=== PATIENT | male | born 1975 | race Hispanic/Latino ===

== ENCOUNTER 2018-09-18 07:45 | Observation (INO) | payer BC ==
[2018-09-18] MEDS ORDERED: Sodium Chloride 0.9% 1,000 ML IV STA ×2 (08:01→10:28)
--- NOTE | 2018-09-18 08:16 | ED PDOC ---
Arrival/HPI - General Chief Complaint: Male Genitourinary Time Seen by Provider: 09/18/18 07:52 Historian: Patient - History of Present Illness Narrative History of Present Illness (Text): 09/18/18 07:53 43 year old male, with no significant past medical history, who presents to the Emergency department complaining of aching right lower back pain and abdominal pain that started shortly after being unable to urinate this morning. Patient states he woke up this morning to use the bathroom, had normal bowel movements, and felt he needed to urinate but was unable to. Patient notes he was feeling hot and nauseous earlier and states he thought he was going to vomit but did not. Patient denies any known drug allergies, recent traumas, chest pain, shortness of breath, or any other complaints. Patient notes family history of ki dney stones (paternal). PMD: Dr. Keane Time/Duration: 1-3 hours (patient notes onset as 05:00 this morning) Symptom Onset: Sudden Symptom Course: Unchanged Activities at Onset: Other (went to use bathroom ) Past Medical History - Provider Review Nursing Documentation Reviewed: Yes - Travel History Have you recently traveled outside [place] w/in the past 3 mons?: No - Infectious Disease Hx of Infectious Diseases: None - Tetanus Immunization Tetanus Immunization: Up to Date - Past Medical History Past Medical History: No Previous - Cardiac Hx Pacemaker: No - Pulmonary Hx Respiratory Disorders: No - Neurological Hx Paralysis: No - HEENT Hx HEENT Disorder: No - Renal Hx Renal Disorder: No - Hematological/Oncological Hx Blood Transfusions: No Hx Blood Transfusion Reaction: No - Integumentary Hx Dermatological Disorder: No - Musculoskeletal/Rheumatological Hx Musculoskeletal Disorders: No - Gastrointestinal Hx Gastrointestinal Disorders: No - Genitourinary/Gynecological Hx Genitourinary Disorders: No - Psychiatric Hx Emotional Abuse: No Hx Physical Abuse: No Hx Substance Use: No - Past Surgical History Past Surgical History: No Previous - Anesthesia Hx Anesthesia Reactions: No Hx Malignant Hyperthermia: No - Suicidal Assessment Feels Threatened In Home Enviroment: No Family/Social History - Physician Review Nursing Documentation Reviewed: Yes Family/Social History: Other (Paternal: kidney stones) Smoking Status: Never Smoked Hx Alcohol Use: Yes (OCCASIONAL) Hx Substance Use: No Hx Substance Use Treatment: No Allergies/Home Meds Allergies/Adverse Reactions: Allergies No Known Allergies Allergy (Verified 09/18/18 11:47) Home Medications: Home Meds Medication Instructions Recorded Confirmed RX: No Known Home Med 09/18/18 09/18/18 Review of Systems - Physician Review All systems were reviewed & negative as marked: Yes - Review of Systems Constitutional: Normal Eyes: Normal ENT: Normal Respiratory: Normal. absent: SOB Cardiovascular: Normal. absent: Chest Pain Gastrointestinal: Abdominal Pain (patient notes abdominal pain ), Nausea (patient notes he had nausea earlier, felt like he needed to vomit). absent: Normal, Stool Changes (patient notes normal bowel movement this morning) Genitourinary Male: Urinary Output Changes (patient notes difficulty urinating). absent: Normal Musculoskeletal: Back Pain (right lower back pain ). absent: Normal Physical Exam Vital Signs Reviewed: Yes Vital Signs Temp Pulse Resp Pulse Ox 09/18/18 07:58 98.6 F 76 18 100 Temperature: Afebrile Pulse: Regular Respiratory Rate: Normal Appearance: Positive for: Well-Appearing, Non-Toxic Pain Distress: Mild Mental Status: Positive for: Alert and Oriented X 3 - Systems Exam Head: Present: Atraumatic, Normocephalic Pupils: Present: PERRL Extroacular Muscles: Present: EOMI Conjunctiva: Present: Normal Mouth: Present: Moist Mucous Membranes Neck: Present: Normal Range of Motion Respiratory/Chest: Present: Clear to Auscultation, Good Air Exchange. No: Respiratory Distress, Accessory Muscle Use Cardiovascular: Present: Regular Rate and Rhythm, Normal S1, S2. No: Murmurs Abdomen: Present: Tenderness (RLQ tenderness ), McBurney's Point Tender. No: Distention, Peritoneal Signs Back: Present: CVA Tenderness (right sided CVA tenderness). No: Normal Inspection Upper Extremity: Present: Normal Inspection. No: Cyanosis, Edema Lower Extremity: Present: Normal Inspection. No: Edema Neurological: Present: GCS=15, CN II-XII Intact, Speech Normal Skin: Present: Warm, Dry, Normal Color. No: Rashes Psychiatric: Present: Alert, Oriented x 3, Normal Insight, Normal Concentration Medical Decision Making ED Course and Treatment: Impression: 43 year old male presents to the Emergency department for aching right sided lower back pain and abdominal pain that started shortly after being unable to urinate this morning. Differential Diagnosis included but are not limited to: Pyelonephritis Kidney stones Prostatitis Plan: -- CT of abdomen/Pelvis IV Contrast only -- Labs -- CBC -- ESR -- IV fluids -- Flomax -- Morphine -- Toradol -- Valium -- Zofran Inj -- Urine culture -- Urinalysis W/Micro -- Reassess and disposition Prior Visits: Notes and results from previous visits were reviewed. Progress Notes: 09/18/18 10:05 Spoke to pt regarding CT results. Pt states he would like to stay for continued pain meds. Will talk to PCP Dr. Juarez. 09/18/18 10:[address] Orozco(covering for Dr. Juarez) who is aware of and agrees with plan. Dr. Orozco accepts patient onto her service. Requests Dr. Flynn(urology) for consult. Patient complaining of continued pain. Analgesics ordered. - RAD Interpretation Narrative RAD Interpretations (Text): CT of abdomen/Pelvis reviewed by radiologist, shows: Dictator : Gm Johansen MD Report Date : 09/18/2018 09:46:24 FINDINGS: LOWER THORAX: Unremarkable. LIVER: Unremarkable. No gross lesion or ductal dilatation. GALLBLADDER AND BILE DUCTS: Unremarkable. PANCREAS: Unremarkable. No gross lesion or ductal dilatation. SPLEEN: Unremarkable. ADRENALS: Unremarkable. No mass. KIDNEYS AND URETERS: There is a 3 mm stone at the level of the right UV There is mild hydronephrosis and hydroureter and mild right-sided perinephric stranding. Findings are seen on coronal image 80 series 601 and image 162 series 3 VASCULATURE: Unremarkable. No aortic aneurysm. BOWEL: Unremarkable. No obstruction. No gross mural thickening. APPENDIX: Normal appendix. PERITONEUM: Unremarkable. No free fluid. No free air. LYMPH NODES: Unremarkable. No enlarged lymph nodes. BLADDER: Unremarkable. REPRODUCTIVE: Unremarkable. BONES: No acute fracture. OTHER FINDINGS: None. IMPRESSION: There is a 3 mm stone at the level of the right UV There is mild hydronephrosis and hydroureter and mild right-sided perinephric stranding. Radiology Orders: 09/18/18 08:00 ABDOMEN & PELVIS [ABD & PELVIS IV CONTRAST ONLY] [CT] Stat Repair Mechanic: Radiologist - Medication Orders Current Medication Orders: Sodium Chloride (Sodium Chloride 0.9%) 1,000 mls @ 999 mls/hr IV .Q1H1M STA Stop: 09/18/18 09:01 Discontinued Medications Diazepam (Valium) 5 mg PO ONCE ONE; Protocol Stop: 09/18/18 08:02 Ketorolac Tromethamine (Toradol) 30 mg IVP STAT STA Stop: 09/18/18 08:01 - Scribe Statement The provider has reviewed the documentation as recorded by the Saraibe Jessica Ruiz All medical record entries made by the Saraibjovan were at my direction and personally dictated by me. I have reviewed the chart and agree that the record accurately reflects my personal performance of the history, physical exam, medical decision making, and the department course for this patient. I have also personally directed, reviewed, and agree with the discharge instructions and disposition. Disposition/Present on Arrival - Present on Arrival Any Indicators Present on Arrival: No History of DVT/PE: No History of Uncontrolled Diabetes: No Urinary Catheter: No History of Decub. Ulcer: No History Surgical Site Infection Following: None - Disposition Have Diagnosis and Disposition been Completed?: Yes Diagnosis: Kidney stone, Renal colic on right side Disposition: HOSPITALIZED Disposition Time: 09:35 Patient Plan: Observation Condition: STABLE
[2018-09-18 08:34] VITALS: BMI 34.2
[2018-09-18 08:36] LABS: URINE BILIRUBIN NEGATIVE (NEGATIVE); URINE BLOOD LARGE (NEGATIVE); URINE GLUCOSE (UA) NEGATIVE (NEGATIVE); URINE LEUKOCYTE ESTERASE NEGATIVE Leu/uL (NEGATIVE); URINE PROTEIN 100 mg/dL (<30 mg/dL); URINE UROBILINOGEN 0.2 E.U./dL (<1 E.U./dL)
[2018-09-18 08:37] LABS: URINE APPEARANCE TURBID (CLEAR); URINE COLOR LIGHT YELLOW (YELLOW)
[2018-09-18 08:50] LABS: URINE AMORPHOUS SEDIMENT MODERATE; URINE BACTERIA MANY (NEG); URINE RBC TNTC /hpf (0-2)
[2018-09-18 09:01] LABS: BASO # 0.02 K/mm3 (0.0-2.0); BASO % 0.1 % (0.0-3.0); EOS % 0.1 % (1.5-5.0); GRAN # 13.69 (1.4-6.5); GRAN % 88.8 % (50.0-68.0); HEMOGLOBIN 15.6 g/dL (14.0-18.0); LYMPH % 6.7 % (22.0-35.0); MEAN CELL VOLUME 93.3 fl (80.0-105.0); MEAN CORPUSCULAR HEMOGLOBIN 31.6 pg (25.0-35.0); MEAN CORPUSCULAR HGB CONC 33.8 g/dl (31.0-37.0); MEAN PLATELET VOLUME 9.8 fl (7.0-11.0); MONO # 0.7 (0.1-0.6); MONO % 4.3 % (1.0-6.0); RBC 4.94 10^6/uL (3.5-6.1); RED CELL DISTRIBUTION WIDTH 12.1 % (11.5-14.5); WHITE BLOOD COUNT 15.4 10^3/ul (4.5-11.0)
[2018-09-18 09:11] LABS: ALB/GLOB RATIO 1.3 (1.1-1.8); ALBUMIN 4.8 g/dL (3.0-4.8); ALT/SGPT 40 U/L (7-56); AST/SGOT 28 U/L (17-59); BLOOD UREA NITROGEN 18 mg/dL (7-21); CALCIUM 9.4 mg/dL (8.4-10.5); GFR NON-AFRICAN AMERICAN > 60; LIPASE 78 U/L (23-300)
--- NOTE | 2018-09-18 09:50 | CT ---
Date of service: 09/18/2018 PROCEDURE: CT Abdomen and Pelvis with contrast HISTORY: inability to urinate w/ R sided CVA tenderness COMPARISON: None. TECHNIQUE: Contrast dose: 150 cc of Omni 350 Radiation dose: Total exam DLP = 1152.35 mGy-cm. This CT exam was performed using one or more of the following dose reduction techniques: Automated exposure control, adjustment of the mA and/or kV according to patient size, and/or use of iterative reconstruction technique. FINDINGS: LOWER THORAX: Unremarkable. LIVER: Unremarkable. No gross lesion or ductal dilatation. GALLBLADDER AND BILE DUCTS: Unremarkable. PANCREAS: Unremarkable. No gross lesion or ductal dilatation. SPLEEN: Unremarkable. ADRENALS: Unremarkable. No mass. KIDNEYS AND URETERS: There is a 3 mm stone at the level of the right UV There is mild hydronephrosis and hydroureter and mild right-sided perinephric stranding. Findings are seen on coronal image 80 series 601 and image 162 series 3 VASCULATURE: Unremarkable. No aortic aneurysm. BOWEL: Unremarkable. No obstruction. No gross mural thickening. APPENDIX: Normal appendix. PERITONEUM: Unremarkable. No free fluid. No free air. LYMPH NODES: Unremarkable. No enlarged lymph nodes. BLADDER: Unremarkable. REPRODUCTIVE: Unremarkable. BONES: No acute fracture. OTHER FINDINGS: None. IMPRESSION: There is a 3 mm stone at the level of the right UV There is mild hydronephrosis and hydroureter and mild right-sided perinephric stranding.
[2018-09-18] MEDS ORDERED: Morphine 4 mg/ml ISec IVP STA ×2 (10:05→11:20)
[2018-09-18] MEDS ORDERED: HYDROmorphone 2 mg/ml ISec IVP PRN (13:02)
[2018-09-18] MEDS ORDERED: Dextrose 5%/0.45% NS 1,000 ML IV SCH (13:15)
[2018-09-18] MEDS: cefTRIAXone 1 gm 1 GM/100 ML BAG IVPB SCH (13:30)
--- NOTE | 2018-09-18 20:10 | PCM.URO ---
Urology Progress Note - Objective Lab Studies: Reviewed (dx: urolithiasis plans:strain urine u/s and kub thanks) Lab Results Last 24 Hours: Laboratory Results - last 24 hr 09/18/18 09/18/18 09/18/18 07:53 08:45 08:45 WBC 15.4 H D RBC 4.94 Hgb 15.6 Hct 46.1 MCV 93.3 MCH 31.6 MCHC 33.8 RDW 12.1 Plt Count 285 MPV 9.8 Gran % 88.8 H Lymph % (Auto) 6.[address] [place] % (Auto) 4.3 Eos % (Auto) 0.1 L Baso % (Auto) 0.1 Gran # 13.69 H Lymph # (Auto) 1.[address] [place] # (Auto) 0.7 H Eos # (Auto) 0.0 Baso # (Auto) 0.02 ESR 6 Sodium 141 Potassium 3.9 Chloride 102 Carbon Dioxide 28 Anion Gap 15 BUN 18 Creatinine 1.2 Est GFR ( Amer) > 60 Est GFR (Non-Af Amer) > 60 Random Glucose 140 H Calcium 9.4 Total Bilirubin 0.7 AST 28 ALT 40 Alkaline Phosphatase 72 Total Protein 8.5 H Albumin 4.8 Globulin 3.7 Albumin/Globulin Ratio 1.3 Lipase 78 Urine Color Light yellow Urine Appearance Turbid Urine pH 6.0 Ur Specific Hudson >= 1.030 Urine Protein 100 H Urine Glucose (UA) Negative Urine Ketones Negative Urine Blood Large H Urine Nitrate Negative Urine Bilirubin Negative Urine Urobilinogen 0.2 Ur Leukocyte Esterase Negative Urine RBC Tntc Urine WBC 2 - 5 Ur Epithelial Cells None Amorphous Sediment Moderate Urine Bacteria Many Urine Other Uyeast Intake & Output: Intake & Output 09/18/18 09/18/18 09/19/18 06:59 18:59 06:59 Intake Total 900 Balance 900 Weight 225 lb Intake: Oral 900 Other: Voiding Method Toilet Vital Signs: Vital Signs - 24 hr 09/18/18 09/18/18 09/18/18 07:58 09:15 10:17 Temperature 98.6 F Pulse Rate 76 78 82 Respiratory 18 18 17 Rate Blood Pressure 132/81 124/80 O2 Sat by Pulse 100 99 99 Oximetry 09/18/18 09/18/18 09/18/18 11:29 11:40 12:25 Temperature Pulse Rate 72 72 67 Respiratory 18 17 17 Rate Blood Pressure 128/75 127/82 125/80 O2 Sat by Pulse 99 100 100 Oximetry 09/18/18 09/18/18 09/18/18 12:26 13:59 14:00 Temperature 98.1 F Pulse Rate 98 H Respiratory 18 20 Rate Blood Pressure 142/100 H O2 Sat by Pulse 100 99 Oximetry
[2018-09-19 06:54] LABS: BASO # 0.01 K/mm3 (0.0-2.0); BASO % 0.1 % (0.0-3.0); EOS # 0.1 (0.0-0.7); EOS % 0.4 % (1.5-5.0); GRAN # 8.7 (1.4-6.5); GRAN % 77.5 % (50.0-68.0); HEMOGLOBIN 13.2 g/dL (14.0-18.0); LYMPH # 1.3 (1.2-3.4); LYMPH % 11.7 % (22.0-35.0); MEAN CELL VOLUME 92.9 fl (80.0-105.0); MEAN CORPUSCULAR HEMOGLOBIN 30.4 pg (25.0-35.0); MEAN CORPUSCULAR HGB CONC 32.8 g/dl (31.0-37.0); MEAN PLATELET VOLUME 9.8 fl (7.0-11.0); MONO # 1.2 (0.1-0.6); MONO % 10.3 % (1.0-6.0); RBC 4.34 10^6/uL (3.5-6.1); WHITE BLOOD COUNT 11.2 10^3/ul (4.5-11.0)
--- NOTE | 2018-09-19 07:39 | HP ---
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 He states this morning he woke up around 05:00 to urinate and after that, he started to have some discomfort and his swelling and pain got worse that urged him to come to emergency room. He complained also having chills. He felt nauseous, but never vomiting. Because of the pain, he came to emergency room for further evaluation. PAST MEDICAL HISTORY: He has no significant past medical history. SOCIAL HISTORY: He lives with his girlfriend. He denies smoking, however, he drinks socially. FAMILY HISTORY: He does have family history significant for nephrolithiasis in his father and brother. ALLERGIES: HE IS NOT ALLERGIC TO ANY MEDICATIONS. MEDICATIONS: He does not take any significant medication at home. PHYSICAL EXAMINATION: GENERAL: Today, he is awake, alert, oriented, able to communicate. Complained of pain in the right side. VITAL SIGNS: He is afebrile, pulse 98, respirations 20, blood pressure 142/100. LUNGS: Bilateral fair airflow. No rhonchi or crackle. HEART: S1 and S2 audible. ABDOMEN: Soft, nontender. No rebound. No guarding. NEUROLOGICAL: Patient is awake, alert, oriented, communicative. LABORATORY EXAM: WBC 15.4, hemoglobin 15.6, hematocrit 46, platelets 25. Chemistry: Sodium 141, potassium 3.9, chloride 102, CO2 of 28, BUN 18, creatinine 1.2. Blood sugar of 140. LFTs are within normal limits. He has large blood. No leukocyte. CT scan of the abdomen and pelvis revealed 3 mm stone in the level of the right UV. There is a mild hydronephrosis and hydroureter and mild right-sided perinephric stranding. ASSESSMENT: 1. Renal colic. 2. Right hydronephrosis. 3. Leukocytosis. 4. Hypertension probably secondary to pain. PLAN: We will start patient on IV fluid, give him analgesic, has been started on IV Rocephin. Dr. Flynn is consulted but he is away so Dr. Alford is covering the patient who will see patient later on today. We will follow up his CBC and CMP in a.m. Radha Orozco MD [facility] # [id number]
[2018-09-19 08:02] LABS: ALB/GLOB RATIO 1.2 (1.1-1.8); ALBUMIN 3.7 g/dL (3.0-4.8); CALCIUM 8.6 mg/dL (8.4-10.5)
[2018-09-19 09:01] LABS: FREE T4 0.94 ng/dL (0.78-2.19)
[2018-09-19] MEDS: cefTRIAXone 1 gm 1 GM/100 ML BAG IVPB SCH (09:49)
--- NOTE | 2018-09-19 10:42 | RAD ---
Date of service: 09/18/2018 HISTORY: urolithiasis , right pelvic stone , COMPARISON: CT 09/18/2018 FINDINGS: BOWEL: Normal. No obstruction. No free air. BONES: Normal. OTHER FINDINGS: The right renal collecting system and ureter are opacified with contrast from the earlier C T. The 3 mm stone is seen at the right UVJ IMPRESSION: As above
--- NOTE | 2018-09-19 11:24 | US ---
Date of service: 09/19/2018 PROCEDURE: Ultrasound of the Kidneys HISTORY: hydronephrosis, please do tomorrow am COMPARISON: CT abdomen pelvis with IV contrast performed 09/18/18 TECHNIQUE: Sonogram of the kidneys. FINDINGS: RIGHT KIDNEY: Measures: 13.6 x 6.9 x 7.2 cm. No obstructing calculus, hydronephrosis, or renal cyst. LEFT KIDNEY: Measures: 13.1 x 7.2 x 6.5 cm. No obstructing calculus, hydronephrosis, or renal cyst. OTHER FINDINGS: None. IMPRESSION: No obstructing calculus or hydronephrosis identified.
--- NOTE | 2018-09-19 14:01 | RAD ---
Date of service: 09/19/2018 PROCEDURE: Abdomen multiple views HISTORY: pain COMPARISON: Abdomen radiograph performed 09/18/18 FINDINGS: Right renal collecting system in ureter remained opacified with contrast. Suspected calcification at the right UVJ. Additional pelvic calcification, likely phlebolith. IMPRESSION: Right renal collecting system and ureter remained dilated and opacified with contrast. Suspected calcification at the right UVJ.
--- NOTE | 2018-09-19 17:01 | CON ---
UROLOGY CONSULTATION DATE OF CONSULTATION: 09/18/2018 REASON FOR CONSULTATION: "Urinary retention" and severe renal colic. HISTORY OF PRESENT ILLNESS: This is a 43-year-old gentleman who woke up at about 4 to 5 a.m. to go to the bathroom to have a bowel movement, got the feeling that he had to urinate, but could not pass the urine and had some right flank pain. The patient then presented to the emergency room where they inserted a Reddy catheter via the urethra, he had output of 250 mL of urine. Subsequently, with the pain in the flank, he also got a CAT scan that showed a right distal ureteral stone right at the UVJ and some mild right hydronephrosis. The CT scan, I had a chance to review the film with the patient as well as with his . After that Reddy was initially put in, they removed that Reddy. He has been urinating all day without difficulty. His flank pain is resolved at this point. For he is yet to pass the stone, he is straining his urine. PAST MEDICAL AND SURGICAL HISTORY: No history of ND or CVA. SOCIAL HISTORY: He is here with his . He has two children. He is a rumrman. MEDICATIONS: Listed. ALLERGIES: LISTED. PHYSICAL EXAMINATION: Well-nourished male. He is currently resting comfortably in bed. VITAL SIGNS: Within normal limits and in the chart. The remainder of the physical exam is otherwise unremarkable. LABORATORY DATA: See chart. Normal lab values for the most part. The CT scan I have had a chance to review. Again, there is mild right hydronephrosis with an arrow pointing to the calcification as read out by the radiologist. Further inspection also reveals there are other areas where they may be free fluid. DIAGNOSES: 1. Possible urinary retention. 2. Urolithiasis. 3. Hydronephrosis. 4. Hematuria. 5. Gout. ASSESSMENT: In summary, this is a very pleasant gentleman who has a significant history of gout. Otherwise, essentially unremarkable history. PLAN: I discussed options with the patient. Right now he is pain-free, but has not passed the stone. So, what we are going to do is, we are going to arrange for an ultrasound and a KUB either tonight or tomorrow. Meanwhile, we will keep straining the urine to see if anything will pass. Meanwhile, we will provide IV fluids and analgesics and then further plans will follow. I went through with the patient all the different options that are available at this point and we will continue to monitor him closely. Thank you for the consultation. Shahram Alford MD
[2018-09-19] MEDS ORDERED: Propofol 10 mg/ml Inj (20 ML) ONE (17:41)
[2018-09-19] MEDS ORDERED: Midazolam 2 MG/2 ML VIAL ONE (17:41)
[2018-09-19] MEDS ORDERED: Iohexol 240 (50 ml) ONE (18:13)
[2018-09-19] MEDS ORDERED: Lidocaine 2% Jelly (Uro-Jet) ONE (18:13)
[2018-09-19] MEDS ORDERED: cefTRIAXone (Rocephin) 1 gm Inj ONE (18:13)
[2018-09-19] MEDS ORDERED: Gentamicin 80 mg/2mL Inj. ONE (18:32)
[2018-09-19] MEDS ORDERED: HYDROmorphone 0.5 mg/0.5 ml ISec IVP PRN (19:10)
[2018-09-19] MEDS ORDERED: Lactated Ringer's 1,000 ML IV SCH (19:15)
--- NOTE | 2018-09-19 20:36 | DS ---
HISTORY OF PRESENT ILLNESS: The patient is 43 years old who came in with right flank pain, was found to have a stone in the UV junction, has been on IV fluid, IV antibiotic, doing well, pain free, eating and tolerating. PHYSICAL EXAMINATION: VITAL SIGNS: He is afebrile, pulse 74, respirations 20, and blood pressure 131/80. LUNGS: Bilateral fair airflow. No rhonchi or crackle. HEART: S1, S2 audible. ABDOMEN: Soft and nontender. No rebound. No guarding. NEUROLOGIC: He is awake, alert, oriented, and communicative. LABORATORY EXAM: WBC 11.2, hemoglobin 13, hematocrit 40, and platelets 232. Chemistry: Sodium 137, potassium 4.5, chloride 102, CO2 of 28, BUN 13, creatinine 1.6, blood sugar of 128, uric acid is 9.0 and LDL is 135. Blood is large. Urine cultures are negative. ASSESSMENT: 1. Right renal colic. 2. Nephrolithiasis. 3. Hyperuricemia. 4. Mild renal insufficiency, possibly obstructive. PLAN: I spoke to Dr. Alford, he will evaluate the patient. We will continue him on IV fluid and analgesic and will discharge the patient after he is seen by Dr. Alford. Radha Orozco MD
--- NOTE | 2018-09-20 02:27 | PN ---
DATE: 09/19/2018 UROLOGY NOTE For immediate postop note, see the history and physical, see the consultation, see the progress note, see the addendum note, see the operative note. Meanwhile, the patient is now in Recovery, in stable condition, doing well. His double-J stent is in good location. The patient was treated with a lot of antibiotics, on Rocephin and gentamicin. PHYSICAL EXAMINATION: VITAL SIGNS: Normal. . Further plans will follow. PLAN: 1. The patient will be monitored how he does clinically, and then we will make decisions about his further care. 2. The plan is to give diet, hydration, analgesics, antibiotics, and further plan will follow. Shahram Alford MD
[2018-09-20 08:35] VITALS: RESP 16; O2SAT 95
[2018-09-20] MEDS: cefTRIAXone 1 gm 1 GM/100 ML BAG IVPB SCH (09:47)
[2018-09-20] MEDS ORDERED: levoFLOXacin 500 MG TAB PO ONE (16:05)
[2018-09-20 17:57] VITALS: BP 135/89; PULSE 77; TEMP 98.2
[2018-09-20] MEDS ORDERED: Influenza Vaccine 60 mcg/0.5 mL SYR (4YR UP) IM ONE (22:40)
--- NOTE | 2018-09-21 00:29 | DS ---
HISTORY OF PRESENT ILLNESS: The patient is a 43-year-old, seen and examined, lying in bed, seems to be very comfortable. No nausea, vomiting. No diarrhea. Underwent cystoscopic removal of kidney stone and had stent placed. PHYSICAL EXAMINATION: GENERAL: He is awake, alert, oriented, and communicative. VITAL SIGNS: He is afebrile, pulse 73, respirations 16, blood pressure 129/91. LUNGS: Bilateral fair airflow. No rhonchi or crackle. HEART: S1, S2 audible. ABDOMEN: Soft, nontender, obese. No hepatosplenomegaly. NEUROLOGIC: The patient is awake, alert, oriented, and communicative. LABORATORY DATA: There is no new lab available today. ASSESSMENT: 1. Right nephrolithiasis, status post cystoscopic removal. 2. Obesity. 3. Transient hypertension. PLAN: The patient is currently on IV fluid, I will discontinue that. His oral intake is fair. Analgesic as needed. He did not grow any bacteria in the urine cultures, so there is no need for antibiotic, we will discontinue that. The patient will be discharged today after he is seen by . Radha Orozco MD
--- NOTE | 2018-09-22 10:01 | OP ---
PROCEDURE DATE: 09/19/2018 PREOPERATIVE DIAGNOSES: Urolithiasis, hematuria, severely obstructed kidney. There is still contrast in the system more than 30 hours after the initial injection. POSTOPERATIVE DIAGNOSES: Urolithiasis, hematuria, severely obstructed kidney. There is still contrast in the system more than 30 hours after the initial injection, and a completely obstructing distal ureteral stone. PROCEDURE: Cystoscopy, ureteral dilation, ureteroscopy, stone basketing, and insertion of right double J stent. There is no retrograde pyelogram performed, but there is tremendous amount of contrast in the system to completely obstruct the system. COMPLICATIONS: There were no complications. ESTIMATED BLOOD LOSS: Less than 10 mL. At the termination of the procedure, we removed the stone intact with one piece with a basket. It is a small 3 mm stone as characterized by the CT scan. OTHER FINDINGS: 1. Normal anterior urethra. No strictures. 2. Verumontanum is minimally visually occlusive. 3. There is a stone that was completely obstructed to a point that we had difficulty to get the wire in. Once we got the wire in, we were able to do the remaining of the procedure. 4. There were debris and gunk coming from the right ureter, but we were able to easily manipulate and very quickly remove the stone intact. At the termination of the procedure, we had a double-J stent. INDICATIONS: The patient is here in the hospital and is on Rocephin. We also gave an extra dose of Rocephin prior to the procedure and we gave gentamicin. Urology findings were that there was a distal ureteral stone that was causing complete obstruction, made the wire a little bit difficult to get up, but we did get the wire up with the help of the assistant director of financial aid and by using the Burn torque catheter. At the termination of the procedure, we were able to put a double-J stent in and there were no complications. DESCRIPTION OF PROCEDURE: After discussing options with the patient with the risks, benefits, and alteratives including the possibility for observation, which is no longer my recommendation. My initial recommendation was as long as the patient is pain-free, but seeing contrast at this late point more than 30 hours later from the initial procedure, and now that we have done the procedure, there is sill a full column of contrast going down to the kidney, down to the ureter, right at the UVJ. The implication was that the stone is not moving despite the fact that it is only a 3-mm stone. The patient with no pain, but again this may be just secondary to . After obtaining informed consent, patient was placed on the table. Routine monitors were placed. Time-out was called to confirm the patient, positioning, etc., I discussed the patient risks, benefits, and treatment alternatives. I discussed risk of sepsis. I discussed the risk of not of being able to get a stent in. I discussed risk of various options. Also, discussed the benefits that we may be able to at least place a stent. Unobstructed kidney. He actually wanted to see it. I also discussed the benefit of that we can get the stone out. We will loosen up and we are going to try to remove it. At the end, we were able to remove it intact and fit it in the basket. I had excellent assistance and good visualization throughout the case. The cystoscope was introduced via the urethra, we used a rigid ureteroscope. Timeout was called to confirm the patient positioning. We introduced the cystoscope via urethra. Anterior urethra was normal. No strictures. Verumontanum is minimally visually occlusive. Ureteral orifice was identified. Pictures were taken on left and right side. Now, on the right side, we went straight, and because of the CAT scan report, I did not even want to introduce contrast, I wanted to put a wire in, but was of note interestingly is that the wire goes just in the very distal and no more proximally. So, at this point, we tried gently, it just would not go. So, we used the Burn catheter with my assistant director of financial aid helping me, and then we kept slipping it, using the wide portion of the torque, till we got the right ankle and the correct angle, that is, and once we did that, we were able to put the wire, and we watched it with fluoroscopy itself proper and it went straight up. Plus the kidneys outlined with the contrast from a previous CAT scan from yesterday. So, once we had the wire up, we then put the ureteral catheter just gently past that point, so we had a little more working room. We let it dilate. We also did not want to do much manipulation on the stone. At this point, once we removed the cystoscope, we removed the torque catheter and we just had the wire. So, we dilated the ureter at this point with the torque catheter and we actually put a second wire in. We now introduced a short rigid ureteroscope. We were able to the ureteral stone. As we did this, at the ureteral orifice, it was very tight, so we put a second wire in to dilate. Once we put the second wire in, we are able to feel a little more comfortable to have the safety wire up into the kidney and then I had the wire through the scope and I used this as another guide. Once we pushed it a little bit over the ureter, I identified the stone. At this point, the stone was fairly loose, we pushed it up a little bit, a little stone manipulation up to about the level of the iliac vessels. I do want to mention that when we putting the wire in we saw some gunk, we took pictures of that. That is only the pictures taken. We continued at this point, we were able to adapt it, we can see it completely, even though he is completely obstructed. He is on antibiotics, we gave gentamicin, he was given a second dose of Rocephin, he does not appear septic, and it was proceeding along well with no bleeding. So, at this point, we put a wire, we put the double, we put the basket in. We were able to grab it completely. My assistant director of financial aid is able to grab it. We put it in the basket. We decided we are going to try very gently and only gently. We grabbed just the stone and nothing else. We got multiple clear pictures. We now removed it without difficulty. We removed the stone intact. You can see the pictures, that is probably 9, 10, or 11. The procedure continues at this point now with a double-J stent in place. We put the double J stent in. We had a wire go through the double-J stent in to confirm our positioning fluoroscopically. We emptied the bladder. We removed the cystoscope. We need the wire which we stent with dangles are connected to the penis. The patient tolerated the procedure well without complication. Shahram Alford MD [facility] # [id number]
--- NOTE | 2018-09-22 10:01 | PN ---
DATE: 09/19/2018 UROLOGY PROGRESS NOTE SUBJECTIVE: See the previously dictated consult note from 09/18/2018, but there is a change in plan. Mr. Zaidi is a very pleasant gentleman who presented with severe renal colic and retention. Actually the retention, I believe, is secondary to the stone that is in the very distal ureter. Anyway, upon his initial presentation, they did a CT scan with IV contrast. Last evening, we got a repeat film just to see where ____ no pain, but did not pass the stone. On that film, which is significantly delayed picture, there is a column of contrast like an IVP almost going down to a distal ureteral stone right where it was on the CAT scan. The patient is still experiencing no pain. So we are going to make an adjustment in our plan. We would like to treat it. The patient does not appear toxic or septic yet. However, he is also on Rocephin. So, see the plans as listed below. ADDENDUM PAST MEDICAL AND SURGICAL HISTORY: As above otherwise no change. Socially, no changes. Physical exam, essentially no changes. Vital signs are noted and he is currently afebrile. DIAGNOSIS: Urolithiasis with right kidney is completed obstructed by definition. PLAN: The plan will be as follows, we will repeat an ultrasound. We are awaiting the repeat ultrasound. We are going to repeat a KUB and then make further recommendations and plan. The patient is on antibiotics, though this may mask his sepsis. But if he is having a persistently obstructed kidney, we are going to move to treatment. A. Observation warranted. B. Because there is no progress on his 3 mm stone and is completely obstructed, I want to avoid sepsis in this gentleman. So, the plan is as follows: Repeat KUB and then make further plan. ADDENDUM Repeat KUB is done. It is now much more than 24 hours. Although the patient does not appear to toxic, he is on Rocephin and has a completely obstructed kidney. The plan now is actually an emergency cystoscopy, even get in this late hour, it is the evening time. We are going for a cystoscopy and at least drain the kidney. I did explain to the patient and son of my concerns. There is a gigantic risk of sepsis and perforation. I explained to them our plan is for at least cystoscopy and a stent if we can. Given the location by x-ray criteria, this is going to be a very difficult, very often this stone would be and we will see if we were able to make progress. So the plan is as follows. We are going to plan for a cystoscopy and stent placement, we are going to even consider regarding on how the procedure is going, ureteroscopy and laser lithotripsy or ureteroscopy and stone basketing. Further plans will follow. ADDENDUM See the operative note. We actually able to pass his stone in its entirety. See the operative note. We were able to basket and remove the stone and place the stent, but I want to mention that the patient is definitely at risk for sepsis. Shahram Alford MD
--- NOTE | 2018-09-22 16:01 | RAD ---
Date of service: 09/19/2018 PROCEDURE: Intraoperative Fluoroscopy. HISTORY: STONE BASKET REMOVAL / STENT INSERTION (RIGHT) FINDINGS: Fluoroscopic assistance was provided. Fluoroscopy time = 36.7 sec. Radiation dose = 15.00 mGy. Please refer to the operative report from RICHARD Stevenson, , MD [facility].
== END 2018-09-20 23:06 | disposition home or self-care (01) ==
LOC: ED 07:45 → ERH 10:22 → 5RNO 12:35
PROVIDERS: ADMIT Internal Medicine; ATTEND Internal Medicine
DX: N13.2 Hydronephrosis with renal and ureteral calculous obstruction (principal); I10 Essential (primary) hypertension; E66.9 Obesity, unspecified; M10.9 Gout, unspecified; D72.829 Elevated white blood cell count, unspecified; Z23 Encounter for immunization
CPT/HCPCS: 36415; 52332; 52352; 74022; 74177; 76000; 76770; 80053; 80061; 81001; 83690; 83735; 84100; 84439; 84443; 84550; 85025; 85651; 87086; 88300; 90674; 96361; 96365; 96366; 96375; 96376; 99285; C1758; C1769; C1887; C2617; G0008; G0378; J0696; J1580; J1885; J2175; J2250; J2270; J2405; J2704; J2765; J3010; J7030; J7042; J7120; Q9966; Q9967